=== PATIENT | female | born 1975 | race Caucasian/White ===

== ENCOUNTER 2017-04-05 05:39 | Day surgery (SDC) | payer BC ==
[2017-03-31 13:30] LABS: HEMOGLOBIN 15.3 g/dL (12.0-15.5); HGB HCT DIFFERENCE 0.9; MEAN CORPUSCULAR HEMOGLOBIN 34.4 pg (27.0-33.4); MEAN CORPUSCULAR HGB CONC 34.1 g/dL (32.0-36.0); MEAN CORPUSCULAR VOLUME 101 fl (80-97); RED BLOOD COUNT 4.46 10^6/uL (3.72-5.28); RED CELL DISTRIBUTION WIDTH 12.2 % (11.5-14.0); WHITE BLOOD COUNT 5.9 10^3/uL (4.0-10.5)
[2017-03-31 13:41] LABS: APPEARANCE,URINE CLEAR; BILIRUBIN,URINE NEGATIVE (NEGATIVE); GLUCOSE, URINE NEGATIVE (NEGATIVE); KETONES,URINE 20 mg/dL (NEGATIVE); LEUKOCYTE ESTERASE,URINE NEGATIVE (NEGATIVE); NITRITE,URINE NEGATIVE (NEGATIVE); PROTEIN,URINE NEGATIVE (NEGATIVE); URINE SPECIFIC GRAVITY 1.013; UROBILINOGEN,URINE NEGATIVE mg/dL (<2.0)
[2017-03-31 13:59] LABS: ALANINE AMINOTRANSFERASE 20 U/L (9-52); ALBUMIN 4.7 g/dL (3.5-5.0); ALKALINE PHOSPHATASE 56 U/L (38-126); ANION GAP 10 (5-19); ASPARTATE AMINO TRANSFERASE 16 U/L (14-36); BILIRUBIN,DIRECT 0.4 mg/dL (0.0-0.4); BILIRUBIN,TOTAL 0.6 mg/dL (0.2-1.3); BLOOD UREA NITROGEN 9 mg/dL (7-20); CALCIUM 9.7 mg/dL (8.4-10.2); CARBON DIOXIDE 26 mmol/L (22-30); CHLORIDE 104 mmol/L (98-107); CREATININE RESULT 0.66 mg/dL (0.52-1.25); GLUCOSE 83 mg/dL (75-110); POTASSIUM 4.3 mmol/L (3.6-5.0); SODIUM 139.6 mmol/L (137-145); TOTAL PROTEIN 7.6 g/dL (6.3-8.2)
--- NOTE | 2017-03-31 21:21 | EKG REPORT ---
SEVERITY:- NORMAL ECG - SINUS RHYTHM : Confirmed by: Karoline Dupree MD 31-Mar-2017 21:20:08
--- NOTE | 2017-04-01 12:08 | RADIOLOGY REPORT (SQ) ---
EXAM DESCRIPTION: CHEST PA/LATERAL COMPLETED DATE/TIME: 04/01/2017 11:56 am REASON FOR STUDY: PRE OP COMPARISON: None. EXAM PARAMETERS: NUMBER OF VIEWS: two views TECHNIQUE: Digital Frontal and Lateral radiographic views of the chest acquired. RADIATION DOSE: NA LIMITATIONS: none FINDINGS: LUNGS AND PLEURA: No opacities, masses or pneumothorax. No pleural effusion. MEDIASTINUM AND HILAR STRUCTURES: No masses or contour abnormalities. HEART AND VASCULAR STRUCTURES: Heart normal size. No evidence for failure. BONES: No acute findings. HARDWARE: None in the chest. OTHER: No other significant finding. IMPRESSION: NO SIGNIFICANT RADIOGRAPHIC FINDING IN THE CHEST. TECHNICAL DOCUMENTATION: JOB ID: [id number] [employer]- All Rights Reserved
[~2017-04-05 05:39] MED LIST: CEFAZOLIN 1 GM/D5W RTU 1 GM/50 ML RTUPB IV ONE; LACTATED RINGERS 1000 ML IV PRN; LIDOCAINE 0.5% INJ-PF (5 MG/ML) 50 ML SDV SUBCUT PRN
[2017-04-05] MEDS ORDERED: PROPOFOL INJ 200 MG/20 ML VIAL IV ONE (06:52)
[2017-04-05] MEDS ORDERED: ACETAMINOPHEN 100 ML IV ONE ×2 (06:52→16:00)
[2017-04-05] MEDS ORDERED: MIDAZOLAM 2 MG/2 ML INJ ONE (06:52)
[2017-04-05] MEDS ORDERED: FENTANYL CITRATE INJ/PF 250 MCG/5 ML AMPULE ONE (06:52)
[2017-04-05] MEDS ORDERED: HYDROMORPHONE HCL INJ/PF 2 MG/ML AMPULE ONE (06:53)
[2017-04-05] MEDS ORDERED: MORPHINE SULFATE 10 MG/ML INJ IV PRN ×2 (07:13→09:34)
[2017-04-05] MEDS ORDERED: DIPHENHYDRAMINE HCL 50 MG/ML VIAL IV PRN (07:13)
[2017-04-05] MEDS ORDERED: PROMETHAZINE HCL INJ 25 MG/1 ML VIAL IV PRN (07:13)
[2017-04-05] MEDS ORDERED: MEPERIDINE HCL/PF INJ 25 MG/1 ML DISP.SYRIN IV PRN (07:13)
[2017-04-05] MEDS ORDERED: FENTANYL CITRATE INJ/PF 100 MCG/2 ML AMPUL IV PRN ×3 (07:13)
[2017-04-05] MEDS ORDERED: BUPIVACAINE HCL 0.25 % INJ/PF (2.5 MG/1 ML) 30 ML VIAL ONE (07:23)
[2017-04-05] MEDS ORDERED: RINGERS SOLUTION,LACTATED 1,000 ML IV PRN (09:34)
[2017-04-05] MEDS ORDERED: OXYCODONE-ACETAMINOPHEN 5-325 MG TABLET PO PRN (09:37)
[2017-04-05] MEDS ORDERED: KETOROLAC TROMETHAMINE INJ/PF 30 MG/1 ML SDV IV SCH (10:00)
--- NOTE | 2017-04-05 10:06 | OPERATIVE REPORT E ---
Operative Report NAME: CHIP BANKS : 1975 AGE: 41Y DATE OF SURGERY: 04/05/2017 ROOM: PREOPERATIVE DIAGNOSES: 1. Abnormal uterine bleeding. 2. Anemia. 3. Pelvic pain. POSTOPERATIVE DIAGNOSES: 1. Abnormal uterine bleeding. 2. Anemia. 3. Pelvic pain. PROCEDURE: Robotic-assisted total laparoscopic hysterectomy with bilateral salpingectomy. SURGEON: MASTER GUY M.D. ANESTHESIA: Dr. Guerrero, with general. FINDINGS: A [id number] uterus with normal ovaries, normal fallopian tubes, no endometriosis noted. COMPLICATIONS: None. ESTIMATED BLOOD LOSS: 100 mL. SPECIMENS REMOVED: Uterus, cervix and bilateral fallopian tubes. PROCEDURE IN DETAIL: The patient was taken to the operating room and prepared and draped in a normal sterile fashion in a dorsal lithotomy position. Under sterile conditions, a pelvic catheter was placed to gravity. A sterile speculum was placed into the vagina and the cervix was prepped with Betadine and grasped on the anterior lip with a single-tooth tenaculum and a uterine manipulator was placed after dilating to accommodate the medium VCare. The instruments were removed and the gloves were then changed. Attention was then turned to the upper portion of the case where a subumbilical skin incision was made with an #11 blade and carried through to the underlying layer of fascia. The fascia was excised with a scalpel and extended laterally with Morales scissors to accommodate the GelPOINT. The GelPOINT was then placed in the normal fashion and the abdomen was inflated with approximately 2 L of CO2 gas. The camera trocar which had been placed through the GelPOINT was then used to introduce the robotic camera and this was used to visualize the anatomy. Under direct visualization, two 5 mm ports were placed approximately 10 cm on either side of the umbilicus. The robot was then docked and the monopolar scissors were placed on the patient's right and the vessel sealer was placed in the patient's left. I then rescrubbed and sat at the console where, beginning with the right adnexa, the fallopian tube was grasped and transected with the vessel sealer and then completely removed from the mesosalpinx using the bipolar scissors. The utero-ovarian ligament and the round ligament were then transected using the vessel sealer. Continuing along the contours of the uterus, the uterine artery was coagulated and from the uterus using the vessel sealer. The bladder flap was started with monopolar scissors at the level of the anterior cervical os. The bladder was then dissected bluntly away from the lower uterine segment. Attention was then turned to the left adnexa which in a similar fashion, the left fallopian tube was removed and the left utero-ovarian ligament was transected using the vessel sealer. Again, following the contours of the uterus, the round ligament and the rest of the uterine vasculature was transected using the vessel sealer until the external cervical os was noted. The rest of the bladder flap was then completed using the monopolar scissors and some blunt dissection. The colporrhaphy was then started on the posterior aspect of the cervix next to the uterosacral ligaments and this was completed in a circumferential fashion with the monopolar scissors. The uterus was then removed through the vaginal cuff. Instruments were replaced with a [employer] Installer and the *------*. The V-Loc suture was introduced through the accessory port and the vaginal cuff was then closed using the V-Loc suture with good hemostasis noted. The suture was then cut and the needle was removed through the accessory port. The anatomy was inspected. The ureters were noted to be peristalsing normally with no signs of hydroureter noted and the Wang catheter was clear with clear urine through the tubing. The robot was then undocked. The instruments were then removed. The fascia of the subumbilical incision was closed with 0 Vicryl. The subcutaneous layer was closed with 2 interrupted 0 Vicryl. The skin was closed at all 3 sites with 4-0 Vicryl. The patient tolerated procedure well. Sponge, lap and needle counts were correct x2. The patient was taken to recovery in stable condition. DICTATING PHYSICIAN: MASTER GUY M.D. [id number] PHY#: [id number] ID: [id number] JOB#: [id number] ACCT: [id number] cc:MASTER GUY M.D. >
[2017-04-05] MEDS ORDERED: VECURONIUM BROMIDE INJ 10 MG VIAL IV ONE (13:19)
[2017-04-05] MEDS ORDERED: NEOSTIGMINE METHYLSULFATE 10 MG/10 ML VIAL ONE (13:19)
[2017-04-05] MEDS ORDERED: DEXAMETHASONE SOD PHOSPHATE INJ 4 MG/1 ML VIAL ONE (13:19)
[2017-04-05] MEDS ORDERED: ONDANSETRON HCL INJ/PF 4 MG/2 ML SDV ONE (13:19)
[2017-04-05] MEDS ORDERED: METOCLOPRAMIDE HCL INJ/PF 10 MG/2 ML SDV ONE (13:19)
[2017-04-05] MEDS ORDERED: KETOROLAC TROMETHAMINE 60 MG/2 ML SDV ONE (13:19)
[2017-04-05] MEDS ORDERED: LIDOCAINE 2% INJ-PF (20 MG/ML) 10 ML AMPUL ONE (13:19)
[2017-04-05] MEDS ORDERED: GLYCOPYRROLATE INJ 0.4 MG/2 ML VIAL ONE (13:19)
[2017-04-05] MEDS ORDERED: IBUPROFEN 800 MG TABLET PO PRN (16:30)
[2017-04-05] MEDS ORDERED: INFLUENZA ADLT QUAD (36MOS+) 2017-18 VAC 0.5 ML SYR IM PRN (17:03)
--- NOTE | 2017-04-05 17:34 | PDOC DISCHARGE SUMMARY ---
General - Admit/Disc Date/PCP Discharge Date: 04/05/17 - Additional Information Home Medications: Varenicline Tartrate [Chantix] 1 each PO BID 03/29/17 History of Present Illness History of Present Illness: CHIP BANKS is a 41 year old female Hospital Course Hospital Course: RATLH performed with no complications. uneventful post operative course. Physical Exam - Physical Exam Vital Signs: Temp Pulse Resp BP Pulse Ox 98.7 F 81 18 123/64 100 04/05/17 14:56 04/05/17 14:56 04/05/17 14:56 04/05/17 14:56 04/05/17 14:56 Intake & Output 04/04/17 04/05/17 04/06/17 06:59 06:59 06:59 Intake Total 0 1300 Output Total 700 Balance 0 600 Weight 79.38 kg General appearance: PRESENT: no acute distress - incisions all clean, dry intact Result Laboratory Results: 03/31/17 12:08 03/31/17 12:08 04/05/17 05:57 Serum HCG, Qual NEGATIVE Impressions: Chest X-Ray 04/01/17 11:34 IMPRESSION: NO SIGNIFICANT RADIOGRAPHIC FINDING IN THE CHEST. Plan Discharge Plan: discharge home Time Spent: Less than 30 Minutes
[2017-04-05 17:46] VITALS: BP 140/82
[2017-04-06] MEDS ORDERED: IBUPROFEN 800 MG TABLET PO PRN (08:00)
== END 2017-04-05 18:10 | disposition home or self-care (01) ==
LOC: OROUT 05:39 → 2N 11:11 → OROUT 18:10
PROVIDERS: ATTEND Obstetrics & Gynecology
PROC: 0UTC4ZZ Resection of Cervix, Percutaneous Endoscopic Approach (ICD-10-PCS; 2017-04-05)
PROC: 0UT74ZZ Resection of Bilateral Fallopian Tubes, Percutaneous Endoscopic Approach (ICD-10-PCS; 2017-04-05)
PROC: 8E0W4CZ Robotic Assisted Procedure of Trunk Region, Percutaneous Endoscopic Approach (ICD-10-PCS; 2017-04-05)
PROC: 3E0234Z Introduction of Serum, Toxoid and Vaccine into Muscle, Percutaneous Approach (ICD-10-PCS; 2017-04-05)
PROC: 0UT94ZZ Resection of Uterus, Percutaneous Endoscopic Approach (ICD-10-PCS; principal; 2017-04-05 07:30)
DX: N93.9 Abnormal uterine and vaginal bleeding, unspecified (principal); N83.8 Other noninflammatory disorders of ovary, fallopian tube and broad ligament; D64.9 Anemia, unspecified; N80.3 Endometriosis of pelvic peritoneum; Z79.899 Other long term (current) drug therapy; Z88.5 Allergy status to narcotic agent; Z23 Encounter for immunization
CPT/HCPCS: 58571; 90471; S2900; 36415; 71020; 80053; 81001; 84703; 85027; 86850; 86900; 86901; 88307; 90686; 93005; 93010; J0131; J0690; J1100; J1170; J1885; J2250; J2405; J2704; J2765; J3010; J3490